=== PATIENT | female | born 1970 | race African-American/Black ===

== ENCOUNTER 2017-04-09 13:06 | Emergency (ER) | payer MEDICAID ==
[~2017-04-09] VITALS: Ht 172.7 cm; Wt 93.0 kg
[~2017-04-09 13:06] MED LIST: LIS10T PO
[2017-04-09 13:43] LABS: Basophils # (auto) 0 uL; Basophils % (auto) 0.2 % (0.0-2.0); CONDITION Y; DEFINITIVE SEE PRINTOUT; Eosinophils # (auto) 0.2 uL; Hematocrit 43.2 % (36.0-46.0); Hemoglobin 14.2 g/dL (12.2-16.2); Lymphocytes # (auto) 1.6 uL; Lymphocytes % (auto) 20.2 % (10.0-50.0); Mean Corpuscular Hemoglobin 26.6 pg (28.0-32.0); Mean Corpuscular Hgb Conc. 32.8 g/dL (32.0-36.0); Mean Platelet Volume 9.2 fL (7.4-10.4); Monocytes # (auto) 0.4 uL; Monocytes % (auto) 4.9 % (0.0-12.0); Neutrophils # (auto) 5.7 uL; Neutrophils % (auto) 72.7 % (37.0-80.0); Platelet Count (auto) 275 10^3/uL (140-450); Red Cell Distribution Width 16.8 % (11.6-16.0); White Blood Cell 7.8 10^3/uL (4.4-10.8)
[2017-04-09 14:09] LABS: Albumin 3.5 g/dL (3.4-5.0); Alkaline Phosphatase 56 U/L (45-117); Anion Gap 8 (5-15); Aspartate Aminotransferase 13 U/L (15-37); BUN/Creatinine Ratio 13.1; Bilirubin, Total 0.2 mg/dL (0.2-1.0); Blood Urea Nitrogen 11 mg/dL (7-18); Calcium 8.9 mg/dL (8.5-10.1); Carbon Dioxide 24 mmol/L (21-32); Chloride 106 mmol/L (98-107); GFR African American 93 mL/min; GFR Non-African American 77 mL/min; Glucose 91 mg/dL (74-106); Potassium 3.9 mmol/L (3.5-5.1); Sodium 138 mmol/L (136-145); Total Protein 7.8 g/dL (6.4-8.2)
[2017-04-09] MEDS ORDERED: cloNIDine HCL 0.1 MG TAB PO ONE ×2 (16:30→17:00)
[2017-04-09] MEDS ORDERED: LORazepam 0.5 MG TAB PO ONE (16:30)
[2017-04-09 17:51] VITALS: BP 148/101
== END 2017-04-09 18:04 | disposition home or self-care (01) ==
LOC: ER 13:07
DX: I10 Essential (primary) hypertension (principal); F41.9 Anxiety disorder, unspecified; Z98.51 Tubal ligation status; Z91.041 Radiographic dye allergy status; F17.210 Nicotine dependence, cigarettes, uncomplicated
CPT/HCPCS: 36415; 80053; 83735; 84484; 85025; 93005

== ENCOUNTER 2017-06-26 14:33 | Emergency (ER) | payer SELFPAY ==
[~2017-06-26] VITALS: Ht 172.7 cm; Wt 91.6 kg
[2017-06-26] MEDS ORDERED: cloNIDine HCL 0.1 MG TAB PO ONE ×2 (14:45→18:30)
[2017-06-26 15:47] LABS: Basophils # (auto) 0 uL; Basophils % (auto) 0.6 % (0.0-2.0); Eosinophils # (auto) 0.1 uL; Eosinophils % (auto) 2.4 % (0.0-7.0); Hematocrit 37.6 % (36.0-46.0); Hemoglobin 12.4 g/dL (12.2-16.2); Lymphocytes # (auto) 1.9 uL; Mean Corpuscular Hemoglobin 27.2 pg (28.0-32.0); Mean Corpuscular Volume 82.3 fL (80.0-100.0); Mean Platelet Volume 8.7 fL (7.4-10.4); Monocytes # (auto) 0.6 uL; Monocytes % (auto) 11.2 % (0.0-12.0); Neutrophils # (auto) 2.9 uL; Neutrophils % (auto) 51.8 % (37.0-80.0); Nucleated Red Blood Cells % 0.3 %; Platelet Count (auto) 205 10^3/uL (140-450); Red Cell Distribution Width 15.9 % (11.6-16.0); White Blood Cell 5.6 10^3/uL (4.4-10.8)
[2017-06-26 16:07] LABS: Albumin 3.3 g/dL (3.4-5.0); Alkaline Phosphatase 54 U/L (45-117); Anion Gap 6 (5-15); Aspartate Aminotransferase 11 U/L (15-37); BUN/Creatinine Ratio 13.5; Bilirubin, Total 0.2 mg/dL (0.2-1.0); Blood Urea Nitrogen 10 mg/dL (7-18); Calcium 8.4 mg/dL (8.5-10.1); Carbon Dioxide 27 mmol/L (21-32); Chloride 104 mmol/L (98-107); GFR African American 108 mL/min; GFR Non-African American 89 mL/min; Glucose 91 mg/dL (74-106); Magnesium 2.5 mg/dL (1.6-2.6); Potassium 4.1 mmol/L (3.5-5.1); Sodium 137 mmol/L (136-145); Total Protein 7.4 g/dL (6.4-8.2)
[2017-06-26 18:20] VITALS: BP 153/121
[2017-06-26] MEDS ORDERED: LISINOPRIL 20 MG TAB PO ONE (18:50)
== END 2017-06-26 19:34 | disposition home or self-care (01) ==
LOC: ER 14:33
DX: I10 Essential (primary) hypertension (principal); F17.210 Nicotine dependence, cigarettes, uncomplicated; R11.2 Nausea with vomiting, unspecified; R42 Dizziness and giddiness; Z98.51 Tubal ligation status; Z91.041 Radiographic dye allergy status
CPT/HCPCS: 36415; 70450; 71020; 80053; 83735; 84484; 84702; 85025; 93005

== ENCOUNTER 2017-12-02 04:45 | Emergency (ER) | payer MEDICAID ==
[~2017-12-02] VITALS: Ht 170.2 cm; Wt 90.7 kg
[2017-12-02] MEDS ORDERED: cloNIDine HCL 0.1 MG TAB ONE ×2 (05:27→08:11)
[2017-12-02] MEDS ORDERED: NIFEdipine 10 MG CAP PO ONE (05:30)
[2017-12-02] MEDS ORDERED: cloNIDine HCL 0.1 MG TAB PO ONE ×2 (05:30→08:15)
[2017-12-02] MEDS ORDERED: ACETAMINOPHEN/CODEINE#3 (300/30mg) TAB PO ONE (06:15)
[2017-12-02 08:18] VITALS: BP 174/114
== END 2017-12-02 08:20 | disposition home or self-care (01) ==
LOC: ER 04:45
DX: S62.633A Displaced fracture of distal phalanx of left middle finger, initial encounter for closed fracture (principal); I10 Essential (primary) hypertension; F17.210 Nicotine dependence, cigarettes, uncomplicated; Z79.899 Other long term (current) drug therapy; Z91.041 Radiographic dye allergy status; X58.XXXA Exposure to other specified factors, initial encounter; Y93.89 Activity, other specified; Y99.8 Other external cause status; Y92.89 Other specified places as the place of occurrence of the external cause
CPT/HCPCS: 29130; 73140

== ENCOUNTER 2018-06-02 15:03 | Emergency (ER) | payer MEDICAID ==
[~2018-06-02] VITALS: Ht 172.7 cm; Wt 90.7 kg
[2018-06-02 15:12] VITALS: BP 142/85
== END 2018-06-02 15:22 | disposition left against medical advice (07) ==
LOC: ER 15:03
DX: R42 Dizziness and giddiness (principal); Z53.21 Procedure and treatment not carried out due to patient leaving prior to being seen by health care provider
CPT/HCPCS: 93005

== ENCOUNTER 2018-08-15 09:24 | Emergency (ER) | payer MEDICAID ==
[~2018-08-15] VITALS: Ht 172.7 cm; Wt 90.3 kg
[2018-08-15 09:58] VITALS: BP 149/100
[2018-08-15 10:10] LABS: Basophils # (auto) 0 uL; Basophils % (auto) 0.6 % (0.0-2.0); Eosinophils # (auto) 0.1 uL; Eosinophils % (auto) 2.2 % (0.0-7.0); Hematocrit 41.2 % (36.0-46.0); Hemoglobin 13.6 g/dL (12.2-16.2); Lymphocytes # (auto) 1.4 uL; Mean Corpuscular Hemoglobin 27.4 pg (28.0-32.0); Mean Corpuscular Hgb Conc. 32.9 g/dL (32.0-36.0); Mean Corpuscular Volume 83.2 fL (80.0-100.0); Monocytes # (auto) 0.3 uL; Monocytes % (auto) 6.6 % (0.0-12.0); Neutrophils # (auto) 2.8 uL; Neutrophils % (auto) 60.6 % (37.0-80.0); Platelet Count (auto) 210 10^3/uL (140-450); Red Blood Cells 4.95 10^6/uL (4.0-5.20); Red Cell Distribution Width 14.9 % (11.8-14.3); White Blood Cell 4.6 10^3/uL (4.4-10.8)
[2018-08-15 10:26] LABS: Albumin 3.8 g/dL (3.4-5.0); Amylase 54 U/L (25-115); Anion Gap 7 (5-15); Aspartate Aminotransferase 20 U/L (15-37); BUN/Creatinine Ratio 9.5; Blood Urea Nitrogen 7 mg/dL (7-18); Calcium 9.1 mg/dL (8.5-10.1); Carbon Dioxide 26 mmol/L (21-32); Chloride 106 mmol/L (98-107); GFR African American 107 mL/min; GFR Non-African American 89 mL/min; Glucose 100 mg/dL (74-106); Lipase 124 U/L (73-393); Potassium 3.3 mmol/L (3.5-5.1); Sodium 139 mmol/L (136-145)
[2018-08-15 10:31] LABS: Alanine Aminotransferase 22 U/L (13-56); Alkaline Phosphatase 59 U/L (45-117); Bilirubin, Total 0.3 mg/dL (0.2-1.0); Total Protein 8.2 g/dL (6.4-8.2)
[2018-08-15] MEDS ORDERED: POTASSIUM EFFERVESENT TAB 25 MEQ PO ONE (10:45)
[2018-08-15 11:05] LABS: Urine Bacteria NONE SEEN /hpf (None Seen); Urine Blood Negative /uL (Negative); Urine Mucus FEW (None Seen); Urine WBC 1 /hpf (0 - 5)
== END 2018-08-15 12:08 | disposition home or self-care (01) ==
LOC: ER 09:24
DX: K29.70 Gastritis, unspecified, without bleeding (principal); E87.6 Hypokalemia; F17.210 Nicotine dependence, cigarettes, uncomplicated; I10 Essential (primary) hypertension; Z98.51 Tubal ligation status
CPT/HCPCS: 36415; 74176; 80053; 81001; 82150; 83690; 84484; 85025; 93005

== ENCOUNTER 2018-10-17 09:02 | Emergency (ER) | payer MEDICAID ==
[~2018-10-17] VITALS: Ht 172.7 cm; Wt 88.0 kg
[2018-10-17 09:22] VITALS: BP 147/91
[2018-10-17] MEDS ORDERED: KETOROLAC TROMETH 60MG/2ML VIAL IM ONE (10:00)
== END 2018-10-17 10:22 | disposition home or self-care (01) ==
LOC: ER 09:02
DX: M23.92 Unspecified internal derangement of left knee (principal); I10 Essential (primary) hypertension; F17.210 Nicotine dependence, cigarettes, uncomplicated; Z79.899 Other long term (current) drug therapy; Z98.51 Tubal ligation status
CPT/HCPCS: 73562; 96372; 99283; J1885

== ENCOUNTER 2019-04-25 11:27 | Inpatient (IN) | payer MEDICAID ==
[~2019-04-25] VITALS: Ht 171.4 cm; Wt 84.3 kg
[2019-04-25 12:26] LABS: Basophils # (auto) 0 uL; Basophils % (auto) 0.5 % (0.0-2.0); Eosinophils # (auto) 0.2 uL; Hematocrit 39.1 % (36.0-46.0); Hemoglobin 12.9 g/dL (12.2-16.2); Lymphocytes % (auto) 34.9 % (10.0-50.0); Mean Corpuscular Hemoglobin 27.3 pg (28.0-32.0); Mean Corpuscular Hgb Conc. 33.1 g/dL (32.0-36.0); Mean Corpuscular Volume 82.5 fL (80.0-100.0); Monocytes # (auto) 0.5 uL; Monocytes % (auto) 8.4 % (0.0-12.0); Neutrophils % (auto) 53.2 % (37.0-80.0); Platelet Count (auto) 175 10^3/uL (140-450); Red Blood Cells 4.73 10^6/uL (4.0-5.20); Red Cell Distribution Width 15.4 % (11.8-14.3); White Blood Cell 5.6 10^3/uL (4.4-10.8)
[2019-04-25 12:28] LABS: Urine Bacteria FEW /hpf (None Seen); Urine Blood Negative /uL (Negative); Urine Specific Gravity 1.005 (1.001-1.035); Urine WBC 2 /hpf (0 - 5)
[2019-04-25 12:45] LABS: Albumin 3.5 g/dL (3.4-5.0); Anion Gap 6 (5-15); BUN/Creatinine Ratio 15.1; Blood Urea Nitrogen 11 mg/dL (7-18); Calcium 8.5 mg/dL (8.5-10.1); Carbon Dioxide 28 mmol/L (21-32); Chloride 106 mmol/L (98-107); GFR African American 109 mL/min; GFR Non-African American 90 mL/min; Glucose 89 mg/dL (74-106); Magnesium 2.2 mg/dL (1.6-2.6); Potassium 3.6 mmol/L (3.5-5.1); Sodium 140 mmol/L (136-145)
[2019-04-25 12:50] LABS: Alanine Aminotransferase 18 U/L (13-56); Alkaline Phosphatase 69 U/L (45-117); Aspartate Aminotransferase 14 U/L (15-37); Bilirubin, Total 0.2 mg/dL (0.2-1.0); Total Protein 7.4 g/dL (6.4-8.2)
[2019-04-25 12:51] LABS: INR 1.04 (0.9-1.15); Partial Thromboplastin Time 23.6 sec (23.64-32.05)
[2019-04-25] MEDS ORDERED: HYDROcodone-ACET 5/325MG TAB PO PRN (14:00)
[2019-04-25] MEDS ORDERED: ASPirin 81 mg TAB PO ONE (14:00)
[2019-04-25] MEDS ORDERED: LABETALOL HCL 5 MG/ML ML 20ML VIAL IV PRN (14:00)
[2019-04-25] MEDS ORDERED: MORPHINE SULF INJ 2 MG/ML SYRINGE 1ML IV PRN ×2 (14:00)
[2019-04-25] MEDS ORDERED: NITROGLYCERIN 0.4 MG SL TAB SL PRN (14:00)
[2019-04-25] MEDS ORDERED: ONDANSETRON HCL 4 MG/2 ML VIAL IV PRN (14:00)
[2019-04-25] MEDS ORDERED: POTASSIUM EFFERVESENT TAB 25 MEQ PO ONE (14:45)
--- NOTE | 2019-04-25 15:10 | NUR ---
Telemetry admit from ER WILFREDOSAI admitted to Telemetry unit after SBAR received. Patient oriented to Negrita Alonzo RN primary RN, unit, room, bed, and unit policies regarding patient care and visiting hours. Patient now on continuous telemetry monitoring, tele box # [id number] and telemetry reading on arrival to unit is SR. Patient encouraged to call if they need something. All questions and concerns addressed, patient verbalized understanding.
[2019-04-25 15:49] VITALS: BP 155/106
[2019-04-25] MEDS ORDERED: AMLO5TAB13 PO (17:13)
[2019-04-25] MEDS ORDERED: CARV3.1240 PO (17:13)
[2019-04-25 17:14] VITALS: BP 147/100
[2019-04-25] MEDS ORDERED: cloNIDine HCL 0.1 MG TAB PO ONE (17:15)
[2019-04-25] MEDS ORDERED: cloNIDine HCL 0.1 MG TAB PO PRN (17:15)
--- NOTE | 2019-04-25 17:15 | NUR ---
TELEPHONE ORDERS Page sent to Richard YOU r/t patient's blood pressure readings. T/O read back and noted.
--- NOTE | 2019-04-25 17:28 | NUR ---
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
[2019-04-25 18:52] VITALS: BP 120/72
--- NOTE | 2019-04-25 19:45 | NUR ---
Opening Shift Note: A&Ox4, resting in bed. Room air, pain level 0/10, and ambulates independently without assistive devices. Bed locked in lowest position, side rails up x2, and call light within reach. IV 20 g in left AC IID inserted on 04/25/19. Skin intact. POC discussed and questions answered. Will continue to round prn.
[2019-04-25 22:00] VITALS: BP 107/71
[2019-04-25] MEDS: CARVEDILOL 3.125 MG TAB PO SCH (22:00)
--- NOTE | 2019-04-25 22:00 | NUR ---
Held 2200 coreg related to decreased HR of 59. Current BP stable at 105/71.
[2019-04-25 23:42] VITALS: BP 128/88
[2019-04-26 05:02] VITALS: BP 116/82
--- NOTE | 2019-04-26 07:35 | NUR ---
OPENING NOTE Assumed care of patient from NOC RNAnahy. Patient awake and alert with no S/S of distress/SOB or pain. Instructed on POC and to call for assist PRN, verbalized understanding. Bed in lowest, locked position with side rails up x2 and call light within reach. Will continue to monitor for changes Q1hr and PRN.
[2019-04-26 09:27] VITALS: BP 129/87
[2019-04-26] MEDS: CARVEDILOL 3.125 MG TAB PO SCH ×2 (10:00→22:00)
[2019-04-26] MEDS: LISINOPRIL 10 MG TAB PO SCH (10:01)
[2019-04-26] MEDS: ASPirin 81 mg TAB PO SCH (10:02)
[2019-04-26] MEDS: FAMOTIDINE 20 MG TAB PO SCH (10:02)
--- NOTE | 2019-04-26 11:01 | NUR ---
BRADYCARDIA Received call from [facility] stating patient's HR is 45. Patient was asleep upon entering room, woke patient up and informed her of low HR and asked if she felt ok. Patient states she does feel "alittle off but thought I was just tired". Elevated feet, current HR 59, will continue to monitor.
[2019-04-26 13:00] VITALS: BP 114/65
[2019-04-26 17:00] VITALS: BP 144/96
--- NOTE | 2019-04-26 19:25 | NUR ---
CLOSING NOTE Endorsed care of patient to NOC Anahy SEE.
[2019-04-26] MEDS: ACETAMINOPHEN 500 MG TAB PO PRN ×2 (20:00→22:05)
[2019-04-26 22:00] VITALS: BP 115/74
--- NOTE | 2019-04-26 22:00 | NUR ---
Held 2200 carvedilol related to decreased HR of 57.
[2019-04-27 05:25] VITALS: BP 121/75
[2019-04-27 05:25] LABS: Basophils # (auto) 0 uL; Basophils % (auto) 0.3 % (0.0-2.0); Eosinophils # (auto) 0.1 uL; Eosinophils % (auto) 2.2 % (0.0-7.0); Hematocrit 40.4 % (36.0-46.0); Hemoglobin 13.2 g/dL (12.2-16.2); Lymphocytes # (auto) 2.1 uL; Lymphocytes % (auto) 40.9 % (10.0-50.0); Mean Corpuscular Hemoglobin 27.1 pg (28.0-32.0); Mean Corpuscular Hgb Conc. 32.7 g/dL (32.0-36.0); Mean Corpuscular Volume 82.9 fL (80.0-100.0); Monocytes # (auto) 0.3 uL; Monocytes % (auto) 6.1 % (0.0-12.0); Neutrophils # (auto) 2.6 uL; Neutrophils % (auto) 50.5 % (37.0-80.0); Nucleated Red Blood Cells % 0.1 %; Platelet Count (auto) 161 10^3/uL (140-450); Red Blood Cells 4.87 10^6/uL (4.0-5.20); Red Cell Distribution Width 15.6 % (11.8-14.3); White Blood Cell 5.2 10^3/uL (4.4-10.8)
[2019-04-27 05:34] LABS: Alanine Aminotransferase 16 U/L (13-56); Albumin 3.2 g/dL (3.4-5.0); Anion Gap 7 (5-15); BUN/Creatinine Ratio 9.7; Blood Urea Nitrogen 7 mg/dL (7-18); Calcium 8.6 mg/dL (8.5-10.1); Carbon Dioxide 29 mmol/L (21-32); Chloride 109 mmol/L (98-107); GFR African American 110 mL/min; GFR Non-African American 91 mL/min; Glucose 92 mg/dL (74-106); Sodium 145 mmol/L (136-145)
[2019-04-27 05:37] LABS: Alkaline Phosphatase 61 U/L (45-117); Aspartate Aminotransferase 11 U/L (15-37); Bilirubin, Total 0.2 mg/dL (0.2-1.0); Total Protein 6.9 g/dL (6.4-8.2)
[2019-04-27 08:45] VITALS: BP 110/64
[2019-04-27] MEDS: CARVEDILOL 3.125 MG TAB PO SCH (10:00)
[2019-04-27] MEDS: ASPirin 81 mg TAB PO SCH (10:03)
[2019-04-27] MEDS: FAMOTIDINE 20 MG TAB PO SCH (10:04)
[2019-04-27] MEDS: LISINOPRIL 10 MG TAB PO SCH (10:04)
--- NOTE | 2019-04-27 10:10 | NUR ---
MED HELD Held 1000 Coreg secondary to decreased heart rate, 53.
[2019-04-27 13:00] VITALS: BP 129/75
--- NOTE | 2019-04-27 15:30 | NUR ---
DISCHARGE Discharge instructions given as ordered. Encouraged to follow up with PMD as instructed. All questions and concerns addressed. Patient verbalized understanding. Medication reconciliation form completed and copy given to patient. IV removed with catheter intact and pressure dressing applied. Telemetry unit returned to [facility]. Patient ambulated to vehicle with all personal belongings, accompanied by family member. No distress noted at time of departure.
== END 2019-04-27 15:30 | disposition home or self-care (01) | DRG 201 ==
LOC: ER 11:27 → TELE 11:28 → TELE-WESTW 15:20
PROVIDERS: ADMIT Nurse Practitioner Acute Care; ATTEND Nurse Practitioner Acute Care
DX: I48.0 Paroxysmal atrial fibrillation (principal); E44.1 Mild protein-calorie malnutrition; I16.0 Hypertensive urgency; I10 Essential (primary) hypertension; M10.9 Gout, unspecified; Z68.28 Body mass index [BMI] 28.0-28.9, adult; F17.210 Nicotine dependence, cigarettes, uncomplicated; F41.9 Anxiety disorder, unspecified; Z80.3 Family history of malignant neoplasm of breast
CPT/HCPCS: 36415; 70450; 71045; 80053; 81001; 83735; 83880; 84443; 84484; 85025; 85610; 85730; 86141; 93005; 93306; 94761; G0378

== ENCOUNTER 2019-08-31 11:08 | Emergency (ER) | payer MEDICAID ==
[~2019-08-31] VITALS: Ht 172.7 cm; Wt 84.4 kg
[~2019-08-31 11:08] MED LIST changes: +AMLO5TAB15 PO; +CARV3.1240 PO
[2019-08-31 11:40] LABS: Basophils # (auto) 0.1 uL; Eosinophils # (auto) 0.1 uL; Eosinophils % (auto) 1.9 % (0.0-7.0); Hematocrit 40.6 % (36.0-46.0); Hemoglobin 13.5 g/dL (12.2-16.2); Lymphocytes # (auto) 1.6 uL; Lymphocytes % (auto) 23.9 % (10.0-50.0); Mean Corpuscular Hemoglobin 28.6 pg (28.0-32.0); Mean Corpuscular Hgb Conc. 33.2 g/dL (32.0-36.0); Monocytes # (auto) 0.5 uL; Monocytes % (auto) 7.3 % (0.0-12.0); Neutrophils # (auto) 4.4 uL; Neutrophils % (auto) 65.9 % (37.0-80.0); Nucleated Red Blood Cells % 0.1 %; Platelet Count (auto) 219 10^3/uL (140-450); Red Blood Cells 4.71 10^6/uL (4.0-5.20); Red Cell Distribution Width 14.4 % (11.8-14.3); White Blood Cell 6.6 10^3/uL (4.4-10.8)
[2019-08-31 11:45] LABS: Urine Bacteria FEW /hpf (None Seen); Urine Blood Negative /uL (Negative); Urine Hyaline Cast FEW /lpf (0 - 2); Urine Mucus FEW (None Seen); Urine Specific Gravity 1.018 (1.001-1.035); Urine WBC 1 /hpf (0 - 5)
[2019-08-31 11:58] LABS: Alanine Aminotransferase 19 U/L (13-56); Albumin 3.4 g/dL (3.4-5.0); Anion Gap 4 (5-15); Aspartate Aminotransferase 13 U/L (15-37); BUN/Creatinine Ratio 11.4; Blood Urea Nitrogen 9 mg/dL (7-18); Calcium 8.6 mg/dL (8.5-10.1); Carbon Dioxide 29 mmol/L (21-32); Chloride 108 mmol/L (98-107); GFR African American 99 mL/min; GFR Non-African American 82 mL/min; Glucose 85 mg/dL (74-106); Potassium 3.5 mmol/L (3.5-5.1)
[2019-08-31] MEDS ORDERED: cloNIDine HCL 0.1 MG TAB PO ONE (12:00)
[2019-08-31 12:02] LABS: Alkaline Phosphatase 66 U/L (45-117); Bilirubin, Total 0.1 mg/dL (0.2-1.0); Total Protein 7.6 g/dL (6.4-8.2)
[2019-08-31 12:55] LABS: Sodium 141 mmol/L (136-145)
[2019-08-31 13:47] VITALS: BP 124/89
== END 2019-08-31 14:02 | disposition home or self-care (01) ==
LOC: ER 11:08
DX: I16.0 Hypertensive urgency (principal); F17.210 Nicotine dependence, cigarettes, uncomplicated; Z91.013 Allergy to seafood; Z88.8 Allergy status to other drugs, medicaments and biological substances; Z91.018 Allergy to other foods; Z79.899 Other long term (current) drug therapy
CPT/HCPCS: 36415; 71046; 80053; 81001; 84484; 85025; 93005

== ENCOUNTER 2019-09-07 12:49 | Emergency (ER) | payer MEDICAID ==
[~2019-09-07] VITALS: Ht 165.1 cm; Wt 85.7 kg
[2019-09-07] MEDS ORDERED: cloNIDine HCL 0.1 MG TAB PO ONE (15:30)
[2019-09-07] MEDS ORDERED: ACETAMINOPHEN 325 MG TAB PO ONE (15:30)
[2019-09-07 15:57] LABS: Basophils # (auto) 0 uL; Basophils % (auto) 0.6 % (0.0-2.0); Eosinophils # (auto) 0.1 uL; Eosinophils % (auto) 1.6 % (0.0-7.0); Hematocrit 38.5 % (36.0-46.0); Hemoglobin 12.8 g/dL (12.2-16.2); Lymphocytes # (auto) 1.9 uL; Lymphocytes % (auto) 32.1 % (10.0-50.0); Mean Corpuscular Hemoglobin 28.6 pg (28.0-32.0); Mean Corpuscular Hgb Conc. 33.2 g/dL (32.0-36.0); Mean Corpuscular Volume 86.1 fL (80.0-100.0); Monocytes # (auto) 0.5 uL; Monocytes % (auto) 8.1 % (0.0-12.0); Neutrophils # (auto) 3.5 uL; Neutrophils % (auto) 57.6 % (37.0-80.0); Nucleated Red Blood Cells % 0.1 %; Platelet Count (auto) 196 10^3/uL (140-450); Red Blood Cells 4.47 10^6/uL (4.0-5.20); Red Cell Distribution Width 14.2 % (11.8-14.3)
[2019-09-07 16:10] LABS: Albumin 3.6 g/dL (3.4-5.0); Anion Gap 6 (5-15); Blood Urea Nitrogen 9 mg/dL (7-18); Calcium 8.6 mg/dL (8.5-10.1); Carbon Dioxide 27 mmol/L (21-32); Chloride 109 mmol/L (98-107); Glucose 83 mg/dL (74-106); Magnesium 2.4 mg/dL (1.6-2.6); Potassium 3.5 mmol/L (3.5-5.1); Sodium 142 mmol/L (136-145)
[2019-09-07 16:11] LABS: INR 1.11 (0.9-1.15); Partial Thromboplastin Time 25.1 sec (23.64-32.05)
[2019-09-07 16:16] LABS: Alanine Aminotransferase 14 U/L (13-56); Alkaline Phosphatase 59 U/L (45-117); Aspartate Aminotransferase 11 U/L (15-37); BUN/Creatinine Ratio 14.1; Bilirubin, Total 0.2 mg/dL (0.2-1.0); GFR African American 126 mL/min; GFR Non-African American 104 mL/min; Total Protein 7.5 g/dL (6.4-8.2)
[2019-09-07] MEDS ORDERED: KETOROLAC TROMETH 30 MG/ML 1ML VIAL IV ONE (17:15)
[2019-09-07] MEDS ORDERED: ASPirin 81 mg TAB PO ONE (17:15)
[2019-09-07] MEDS ORDERED: KETOROLAC TROMETH 60MG/2ML VIAL IM ONE (17:30)
[2019-09-07 20:05] VITALS: BP 147/96
== END 2019-09-07 20:20 | disposition home or self-care (01) ==
LOC: ER 12:49
DX: R51 Headache (principal); R07.89 Other chest pain; I10 Essential (primary) hypertension; F17.210 Nicotine dependence, cigarettes, uncomplicated; Z91.018 Allergy to other foods; Z91.013 Allergy to seafood; Z88.8 Allergy status to other drugs, medicaments and biological substances; Z79.899 Other long term (current) drug therapy
CPT/HCPCS: 36415; 70450; 71045; 80053; 83735; 84484; 85025; 85379; 85610; 85730; 93005; 96372; 99284; J1885

== ENCOUNTER 2020-04-14 15:03 | Emergency (ER) | payer MEDICAID ==
[~2020-04-14] VITALS: Ht 172.7 cm; Wt 83.9 kg
[2020-04-14] MEDS ORDERED: cloNIDine HCL 0.1 MG TAB PO ONE (15:30)
[2020-04-14 16:05] LABS: Basophils # (auto) 0.1 10 ^3/uL (0-0.2); Basophils % (auto) 1.8 % (0.0-2.0); Eosinophils # (auto) 0.1 10 ^3/uL (0-0.8); Eosinophils % (auto) 1.2 % (0.0-7.0); Hematocrit 41.9 % (36.0-46.0); Hemoglobin 13.8 g/dL (12.2-16.2); Lymphocytes # (auto) 1.8 10 ^3/uL (0.4-5.4); Lymphocytes % (auto) 29.6 % (10.0-50.0); Mean Corpuscular Hemoglobin 28.7 pg (28.0-32.0); Mean Corpuscular Volume 86.8 fL (80.0-100.0); Monocytes # (auto) 0.4 10 ^3/uL (0-1.3); Monocytes % (auto) 6.6 % (0.0-12.0); Neutrophils # (auto) 3.6 10 ^3/uL (1.6-8.6); Neutrophils % (auto) 60.8 % (37.0-80.0); Nucleated Red Blood Cells % 0.1 %; Platelet Count (auto) 208 10^3/uL (140-450); Red Blood Cells 4.83 10^6/uL (4.0-5.20); Red Cell Distribution Width 13.4 % (11.8-14.3)
[2020-04-14 16:24] LABS: Albumin 3.7 g/dL (3.4-5.0); Anion Gap 3 (5-15); Blood Urea Nitrogen 8 mg/dL (7-18); Calcium 9.2 mg/dL (8.5-10.1); Carbon Dioxide 29 mmol/L (21-32); Chloride 108 mmol/L (98-107); Glucose 85 mg/dL (74-106); Potassium 3.4 mmol/L (3.5-5.1); Sodium 140 mmol/L (136-145)
[2020-04-14 16:29] LABS: Alanine Aminotransferase 18 U/L (13-56); Alkaline Phosphatase 59 U/L (45-117); Aspartate Aminotransferase 11 U/L (15-37); Bilirubin, Total 0.3 mg/dL (0.2-1.0); GFR African American 108 mL/min; GFR Non-African American 89 mL/min; Total Protein 7.5 g/dL (6.4-8.2)
[2020-04-14] MEDS ORDERED: HYDROcodone-ACET 5/325MG TAB PO ONE (17:15)
[2020-04-14] MEDS ORDERED: POTASSIUM CHL 20 Meq TABLET PO ONE (17:15)
[2020-04-14 17:20] LABS: Urine Bacteria FEW /hpf (None Seen); Urine Blood Negative /uL (Negative); Urine Specific Gravity 1.005 (1.001-1.035); Urine WBC 5 /hpf (0 - 5)
[2020-04-14 17:37] VITALS: BP 129/87
[2020-04-14 17:55] LABS: Alcohol, Urine < 3.0 mg/dL (0-10); Amphetamine Screen, Urine NEGATIVE (NEGATIVE); Barbiturate Scree,Urine NEGATIVE (NEGATIVE); Benzodiazephine Screen, Urine NEGATIVE (NEGATIVE); Cannabinoid Screen, Urine NEGATIVE (NEGATIVE); Cocaine Screen, Urine NEGATIVE (NEGATIVE); Opiate Scree,Urine NEGATIVE (NEGATIVE); Phencyclidine Screen, Urine NEGATIVE (NEGATIVE)
== END 2020-04-14 18:15 | disposition home or self-care (01) ==
LOC: ER 15:03
DX: I10 Essential (primary) hypertension (principal); R51 Headache; E87.6 Hypokalemia; Z71.6 Tobacco abuse counseling; Z91.018 Allergy to other foods; Z91.013 Allergy to seafood; Z88.8 Allergy status to other drugs, medicaments and biological substances
CPT/HCPCS: 36415; 70450; 71046; 80053; 80307; 81001; 83880; 84443; 84484; 85025; 93005

== ENCOUNTER 2020-04-22 14:39 | Emergency (ER) | payer MEDICAID ==
[~2020-04-22] VITALS: Ht 172.7 cm; Wt 84.8 kg
[2020-04-22 15:49] VITALS: BP 146/101
[2020-04-22] MEDS ORDERED: KETOROLAC TROMETH 60MG/2ML VIAL IM ONE (16:00)
== END 2020-04-22 16:35 | disposition home or self-care (01) ==
LOC: ER 14:39
DX: G44.209 Tension-type headache, unspecified, not intractable (principal); I10 Essential (primary) hypertension; F17.210 Nicotine dependence, cigarettes, uncomplicated
CPT/HCPCS: 96372; 99283; J1885

== ENCOUNTER 2025-01-08 17:46 | Inpatient (IN) | payer MEDICAID ==
[~2025-01-08] VITALS: Ht 172.7 cm; Wt 102.3 kg
[~2025-01-08 17:46] MED LIST changes: +AMLO1TAB22 PO; -AMLO5TAB15 PO
--- NOTE | 2025-01-08 18:06 | ED.PDOC ---
HPI Comments 55y F who presents to the ED for chief complaint of chest pain. Pt had the following ED course: - pt has been having chest pain for the past 2 days - pt states chest pain is L sided, constant, non-radiating, with noted exacerbating or relieving factors - pt denies any associated symptoms including diaphoresis, palpitations, shortness of breath, or any associated symptoms - pt has noted elevated blood pressure in the ED, despite taking her medications - pt denies any other symptoms at this time. past medical history: HTN past surgical history: medications: denies allergies: iodine, shellfish, avocado social history: endorses tobacco use, endorses Etoh use, denies drug use HPI: Poor Historian. REVIEW OF SYSTEMS: CONSTITUTIONAL: Denies acute: fever, diaphoresis, chills, generalized weakness. HEAD: Denies acute: headache, photophobia Eyes: Denies acute: Double vision, vision loss, eye pain, eye discharge. EARS: Denies acute: tinnitus, hearing loss, ear discharge, ear pain, THROAT: Denies acute: sore throat, swelling, difficulty swallowing , pain with swallowing, change in voice. NECK: Denies acute: neck pain, neck swelling, stiff neck. HEART: Denies acute : palpitations, LUNGS: Denies acute: SOB, wheezing, cough, hemoptysis ABDOMEN: Denies acute: abdominal pain, Nausea, Vomiting, diarrhea, melena , hematemesis, hematochezia SKIN: Denies acute: rash, redness, lesions, itchiness. EXTREMITIES: Denies acute: calf pain, numbness, tingling, weakness, denies pain in extremity. Denies acute: Low back pain. Neuro: Denies acute: focal neurological deficit, motor or sensory focal neurological deficit, tremors, seizure like activity, confusion, dizziness, change in mental status, loss of bowel or bladder function, cauda equina like symptoms. : Denies acute: dysuria, hematuria, flank pain, increase in urinary frequency. PSYCH: Denies acute: hallucination, suicidal ideation, homicidal ideation. FEMALE: Denies acute: abnormal vaginal bleeding, foul odor, unusual discharge. PHYSICAL EXAM: General: no acute distress, awake and alert. Head: normocephalic, atraumatic. Neck: supple, trachea is midline, no swelling. Throat: Normal phonation. Eyes:, no erythema, no purulent discharge, no proptosis, no icterus. Heart: regular rate, regular rhythm, no significant murmur appreciated. Lungs: no apparent respiratory distress, Able to speak in full sentences. No wheezing, no rhonchi, no crackles. No stridors Clear to auscultation bilaterally. Abdomen: non tender to palpation, non distended, soft, no guarding, no rebound, + bowel sounds. Neuro: Awake, Alert, oriented to name, self, situation, follows commands GCS=15. Speech is normal. Skin: no petechia, no purpura, no cyanosis, non-pale, not jaundice. Lower extremities: --no - Pitting edema no deformity, no focal swelling, no calf TTP. Makes eye contact. moves all four extremities. Face: no apparent facial droop. Ambulating in the ED independently. ED COURSE: Time Seen by MD: 18:03 Primary Care Provider: ANA Reviewed Notes: Nurses Notes, Medications, Allergies Allergies: Coded Allergies: Avocado (Verified Allergy, Unknown, 04/14/20) Iodine (Verified Allergy, Unknown, 04/14/20) Shellfish Allergy (Verified Allergy, Unknown, 04/14/20) Home Meds Reported Medications Carvedilol (Carvedilol) 3.125 Mg Tab, 3.125 MG PO BID for 30 Days, MG 04/25/19 Amlodipine Besylate (Amlodipine Besylate) 5 Mg Tab, 5 MG PO DAILY for 30 Days, MG 04/25/19 Lisinopril (ZESTRIL TABLET) 10 Mg Tb, 40 MG PO HS 10/05/15 Information Source: Patient Mode of Arrival: Ambulatory Brought in by: self Past Medical History PAST MEDICAL HISTORY: HTN 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 Was a procedure done?: No CP Differential Dx Differential Diagnosis: N/A Differential Diagnosis: Other (Ddx include but not limitied to gastritis, musculoskeletal pain, radiculopathy, atypical chest pain, dissection, aneurysm, ACS, unstable angina, hiatal hernia, GERD, anxiety, costochondritis, PE, pneumothroax, neoplasm, cardiac ischemia, drug abuse, anemia.) X-Ray, Labs, Meds, VS Vital Signs Date Time Temp Pulse Resp B/P (MAP) Pulse Ox O2 Delivery O2 Flow Rate FiO2 01/08/25 20:49 71 01/08/25 20:20 98.2 71 16 161/101 (121) 96 98.2 01/08/25 20:15 Room Air* 0 21 01/08/25 19:54 123/88 01/08/25 18:54 138/92 01/08/25 18:48 72 01/08/25 18:41 80 01/08/25 18:41 98.8 80 16 138/92 (107) 96 98.8 01/08/25 17:56 82 01/08/25 17:46 98.0 91 18 161/100 (120) 97 98.0 Lab Test 01/08/25 19:03 01/08/25 18:00 Range/Units Troponin I High Sensitivity 4 4 </=34 ng/L White Blood Count 9.1 4.4-10.8 10^3/uL Red Blood Count 4.65 4.0-5.20 10^6/uL Hemoglobin 12.6 12.2-16.2 g/dL Hematocrit 38.0 36.0-46.0 % Mean Corpuscular Volume 81.8 80.0-100.0 fL Mean Corpuscular Hemoglobin 27.2 L 28.0-32.0 pg Mean Corpuscular Hemoglobin Concent 33.2 32.0-36.0 g/dL Red Cell Distribution Width 15.9 H 11.8-14.3 % Platelet Count 241 140-450 10^3/uL Mean Platelet Volume 8.6 6.9-10.8 fL Neutrophils (%) (Auto) 67.0 37.0-80.0 % Lymphocytes (%) (Auto) 23.6 10.0-50.0 % Monocytes (%) (Auto) 7.4 0.0-12.0 % Eosinophils (%) (Auto) 1.3 0.0-7.0 % Basophils (%) (Auto) 0.7 0.0-2.0 % Neutrophils # (Auto) 6.1 1.6-8.6 10 ^3/uL Lymphocytes # (Auto) 2.1 0.4-5.4 10 ^3/uL Monocytes # (Auto) 0.7 0-1.3 10 ^3/uL Eosinophils # (Auto) 0.1 0-0.8 10 ^3/uL Basophils # (Auto) 0.1 0-0.2 10 ^3/uL Nucleated Red Blood Cells 0.1 % Sodium Level 144 136-145 mmol/L Potassium Level 3.7 3.5-5.1 mmol/L Chloride Level 110 H 98-107 mmol/L Carbon Dioxide Level 26 20-31 mmol/L Anion Gap 8 5-15 Blood Urea Nitrogen 7 L 9-23 mg/dL Creatinine 0.71 0.550-1.02 mg/dL Glomerular Filtration Rate Calc 100 >90 mL/min BUN/Creatinine Ratio 9.9 L 10.0-20.0 Serum Glucose 114 H 74-106 mg/dL Calcium Level 9.7 8.7-10.4 mg/dL Total Bilirubin 0.2 0.2-1.0 mg/dL Aspartate Amino Transferase (AST) 19 13-40 U/L Alanine Aminotransferase (ALT) 23 7-40 U/L Alkaline Phosphatase 70 46-116 U/L B-Type Natriuretic Peptide 39.53 0-100 pg/mL Total Protein 6.7 5.7-8.2 g/dL Albumin 4.4 3.2-4.8 g/dL Current Medications Medications (Trade) Dose Ordered Sig/Brenden Route Start Time Stop Time Status Last Admin Aspirin (Ecotrin Enteric Coated Tablet) 325 mg ONCE ONCE PO 01/08/25 18:00 01/08/25 18:01 DC 01/08/25 18:53 Nitroglycerin (Ntrostat Sublingual) 0.4 mg ONCE ONCE SL 01/08/25 18:00 01/08/25 18:01 DC 01/08/25 18:[address] [address] Ph: [phone] DIAGNOSTIC IMAGING Diagnostic Imaging Report : [id number] Signed PATIENT: SAI VILLALOBOS CACCT: [id number] UNIT: [id number] : 1970 LOC: ER ROOM / BED: / AGE / SEX: 55 / F ADM STATUS: REG ER SERVICE 1754 ORDERING PHYSICIAN: EDGARDO HANDY DO PROCEDURE(s): CXRP - CHEST PORTABLE REASON: cp ORDER NUMBER(s): [id number], ACCESSION NUMBER(s): [id number] INDICATION: cp TECHNIQUE: Frontal view of the chest. COMPARISON: None FINDINGS: . The heart and mediastinal contours are grossly unremarkable. There is no evidence of pleural disease. The lungs are clear. The bony structures of the chest are intact without fracture. IMPRESSION: 1. No evidence of acute disease. ATED BY: JULIETA GALLEGOS MD DICTATED DATE/TIME: 01/08/251904 SIGNED BY: JULIETA GALLEGOS MD SIGNED DATE/TIME: 01/08/251904 CC: Time of 1ST Reevaluation: 22:56 Reevaluation 1ST: Improved Patient Education/Counseling: Diagnosis, Treatment Family Education/Counseling: No Family Present Comments Patient presented with the above HPI.--chest pain----workup was initiated. patient was found with the above mentioned diagnosis. the following medications were ordered: please refer to order lists of meds and tests obtained by myself Dr. Handy. Patient ED course and VS have been stabilized. Patient has been reassessed in the ED and remained in a stable condition. Pertinent incidental findings were discussed with the patient and/or family. Patient/family voices understanding and is agreeable with plan. Patient has been observed in the ED adequate length of time to insure improvement/stability. Escalation of care considered: Consideration of escalation to observation or admission Patient was ADMITTED to the medicine team for further evaluation and treatment of their presentation. All the reports of any imaging studies that were ordered by myself were reviewed by myself. Departure 1 Departure Time of Disposition: 18:31 Impression: Primary Impression: Chest pain Qualified Codes: R07.9 - Chest pain, unspecified Disposition: ADMITTED INPATIENT Admit to: [facility] Condition: Guarded Discharged With: Self Critical Care Note Critical Care Time?: No Heart Score Heart Score: Heart Score Response (Comments) Value History Moderate Suspicious 1 EKG Normal 0 Age 45-64 1 Risk Factors >3 or Hx ASHD 2 Troponin Normal limit 0 Total 4 I personally scribed for EDGARDO HANDY DO ([facility]) on 01/08/25 at 18:06. Electronically submitted by Emily Parks ([facility] I personally scribed for EDGARDO HANDY DO ([facility]) on 01/08/25 at 19:58. Electronically submitted by Emily Parks ([facility] EDGARDO HANDY DO Jan 08, 2025 18:06
[2025-01-08 18:29] LABS: Basophils # (auto) 0.1 10 ^3/uL (0-0.2); Basophils % (auto) 0.7 % (0.0-2.0); Eosinophils # (auto) 0.1 10 ^3/uL (0-0.8); Eosinophils % (auto) 1.3 % (0.0-7.0); Hemoglobin 12.6 g/dL (12.2-16.2); Lymphocytes # (auto) 2.1 10 ^3/uL (0.4-5.4); Lymphocytes % (auto) 23.6 % (10.0-50.0); Mean Corpuscular Hemoglobin 27.2 pg (28.0-32.0); Mean Corpuscular Hgb Conc. 33.2 g/dL (32.0-36.0); Mean Corpuscular Volume 81.8 fL (80.0-100.0); Monocytes # (auto) 0.7 10 ^3/uL (0-1.3); Monocytes % (auto) 7.4 % (0.0-12.0); Neutrophils # (auto) 6.1 10 ^3/uL (1.6-8.6); Nucleated Red Blood Cells % 0.1 %; Platelet Count (auto) 241 10^3/uL (140-450); Red Blood Cells 4.65 10^6/uL (4.0-5.20); Red Cell Distribution Width 15.9 % (11.8-14.3); White Blood Cell 9.1 10^3/uL (4.4-10.8)
[2025-01-08 18:47] LABS: Alanine Aminotransferase 23 U/L (7-40); Albumin 4.4 g/dL (3.2-4.8); Alkaline Phosphatase 70 U/L (46-116); Anion Gap 8 (5-15); Aspartate Aminotransferase 19 U/L (13-40); BUN/Creatinine Ratio 9.9 (10.0-20.0); Calcium 9.7 mg/dL (8.7-10.4); Carbon Dioxide 26 mmol/L (20-31); Potassium 3.7 mmol/L (3.5-5.1); Sodium 144 mmol/L (136-145); Total Protein 6.7 g/dL (5.7-8.2)
[2025-01-08] MEDS: ASPirin-EC 325mg tab PO ONE (18:53)
[2025-01-08] MEDS: NITROGLYCERIN 0.4 MG SL TAB SL ONE (18:54)
--- NOTE | 2025-01-08 19:07 | DVH ---
INDICATION: cp TECHNIQUE: Frontal view of the chest. COMPARISON: None FINDINGS: . The heart and mediastinal contours are grossly unremarkable. There is no evidence of pleural disea se. The lungs are clear. The bony structures of the chest are intact without fracture. IMPRESSION: 1. No evidence of acute disease.
[2025-01-08 19:23] LABS: Bilirubin, Total 0.2 mg/dL (0.2-1.0); Blood Urea Nitrogen 7 mg/dL (9-23); Chloride 110 mmol/L (98-107); Glucose 114 mg/dL (74-106)
[2025-01-08 20:00] VITALS: PULSE 68
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
[2025-01-08] MEDS ORDERED: MORPHINE SULFATE INJ 2 MG/ml SYRG IV PRN (23:30)
[2025-01-08 23:40] LABS: Triglycerides 249 mg/dL (< 150)
[2025-01-08 23:41] LABS: LDL Cholesterol 69 mg/dL (< 100)
[2025-01-08 23:42] LABS: Cholesterol 171 mg/dL (< 200)
[2025-01-08 23:46] LABS: HDL Cholesterol 71 mg/dL (40-59)
[2025-01-08] MEDS: ACETAMINOPHEN 325 MG TAB PO PRN (23:53)
[2025-01-09] VITALS (10 sets, daily range): BP systolic 117–195; BP diastolic 75–90; PULSE 62–108; RESP 18–20; TEMP 97.5–98.6; O2SAT 95–98
[2025-01-09] MEDS: PANTOPRAZOLE 40 MG/10 ML VIAL INJ IV ONE (01:12)
[2025-01-09] MEDS: NICOTINE 14 MG/24HR TOPICAL PATCH TD ONE (01:12)
[2025-01-09] MEDS: traMADol HCL 50 MG TAB PO ONE (01:12)
[2025-01-09 01:16] LABS: COVID19 ANTIGEN SOFIA FIA NEGATIVE (NEGATIVE); Rapid Influenza A Negative (Negative); Rapid Influenza B Negative (Negative)
[2025-01-09 06:26] LABS: Basophils # (auto) 0 10 ^3/uL (0-0.2); Eosinophils # (auto) 0.1 10 ^3/uL (0-0.8); Monocytes # (auto) 0.5 10 ^3/uL (0-1.3)
[2025-01-09 06:30] LABS: Basophils % (auto) 0.6 % (0.0-2.0); Eosinophils % (auto) 1.7 % (0.0-7.0); Hematocrit 36.6 % (36.0-46.0); Lymphocytes # (auto) 2.7 10 ^3/uL (0.4-5.4); Lymphocytes % (auto) 38.7 % (10.0-50.0); Mean Corpuscular Hemoglobin 26.8 pg (28.0-32.0); Mean Corpuscular Hgb Conc. 32.8 g/dL (32.0-36.0); Mean Corpuscular Volume 81.7 fL (80.0-100.0); Monocytes % (auto) 6.6 % (0.0-12.0); Neutrophils # (auto) 3.6 10 ^3/uL (1.6-8.6); Neutrophils % (auto) 52.4 % (37.0-80.0); Platelet Count (auto) 214 10^3/uL (140-450); Red Blood Cells 4.48 10^6/uL (4.0-5.20); Red Cell Distribution Width 15.8 % (11.8-14.3); White Blood Cell 6.9 10^3/uL (4.4-10.8)
[2025-01-09 06:38] LABS: Anion Gap 9 (5-15); Carbon Dioxide 26 mmol/L (20-31); Sodium 144 mmol/L (136-145)
[2025-01-09 06:39] LABS: Calcium 9.1 mg/dL (8.7-10.4)
[2025-01-09 06:44] LABS: BUN/Creatinine Ratio 11.4 (10.0-20.0); Chloride 109 mmol/L (98-107); Potassium 3.4 mmol/L (3.5-5.1)
[2025-01-09 06:45] LABS: CRP High Sensitivity 0.71 mg/dL (<1.0); Magnesium 1.9 mg/dL (1.6-2.6)
[2025-01-09 06:46] LABS: Phosphorus 3.8 mg/dL (2.4-5.1)
[2025-01-09 06:47] LABS: Blood Urea Nitrogen 8 mg/dL (9-23); Glucose 133 mg/dL (74-106)
--- NOTE | 2025-01-09 07:10 | ECG ---
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
--- NOTE | 2025-01-09 07:10 | ECG ---
[facility] Test Date: 2025-01-08 Test Time: 20:49:04 Pat Name: SAI VILLALOBOS [facility] Pcmh Specialist: YULISSA : 1970 Requested By: EDGARDO HANDY Order Number: [id number] Reading MD: George Monet Measurements Intervals [place] Rate: 71 P: 12 OK: 142 QRS: 26 QRSD: 86 T: 4 QT: 382 QTc: 416 Interpretive Statements Sinus rhythm Electronically Signed On 01-09-2025 11:57:16 PDT by George Monet Please click the below link to view image of tracing.
[2025-01-09 08:20] LABS: Erythrocyte Sedimentation Rate 14 mm/hr (0-20)
--- NOTE | 2025-01-09 10:18 | DVHPNRES ---
Progress Note Date Seen: Jan 09, 2025 Resident Creating Document: NICKY LEE RESIDENT Medical Necessity Reason Pt with a Central, PICC or Fol: No Subjective Review of Systems This is a 55-year-old female with a past medical history of hypertension and carpal tunnel presented to the ED today with a chief complaint of chest pain. Per the patient,4 days ago, she started pains and achiness on her right lower jaw. Two days later, she started having left sided chest pain that felt more like an ache than pain with associated mild diaphoresis. It is constant," just sitting there" the patient said with no radiation, exacerbation or relieving factors. She denied denied palpitations, shortness of breath, or any associated symptoms. Given the persistency and the nature of the of the pain, patient came to the ED to be evaluated. In the ED, patient received nitroglycerin and Aspirin but said it did not make any difference. Pain is still present although mild. Troponin were negative and 12 lead EKG showed T-wave inversion in lead III otherwise unremarkable. Patient was seen and examined on the bedside. she is alert oriented x3. Mentioned feeling better and some chest discomfort. No other active complaint. Constitutional: No: Fever, Chills, Sweats, Weakness, Malaise, Other Eyes: No: Pain, Vision change, Conjunctivae inflammation, Eyelid inflammation, Other, Redness ENT: No: Ear pain, Ear discharge, Nose pain, Nose discharge, Nose congestion, Mouth pain, Mouth swelling, Throat pain, Throat swelling, Other Respiratory: Shortness of breath, improving No: Cough, Dry,Wheezing, Hemoptysis, Pleuritic Pain, Sputum, Wheezing, Other Cardiovascular: No: Chest Pain, Palpitations, Orthopnea, Paroxysmal Noc. Dyspnea, Edema, Lt Headedness, Other Gastrointestinal: No: Nausea, Vomiting, Abdominal Pain, Diarrhea, Constipation, Melena, Hematochezia, Other Musculoskeletal: No: other, neck pain, shoulder pain, arm pain, back pain, hand pain, leg pain, foot pain Neurological:; No: Weakness, Numbness, Incoordination, Change in speech, Confusion, Seizures Objective vital signs Vital Sign Date Time Temp Pulse Resp B/P (MAP) Pulse Ox O2 Delivery O2 Flow Rate FiO2 01/09/25 06:00 98.4 88 18 122/77 (92) 95 98.4 01/09/25 02:36 Room Air* 0 21 Total Intake and Output 01/08/25 01/08/25 01/09/25 15:00 23:00 07:00 Intake Total 0 ml Balance 0 ml medications Current Medications Medications Dose Ordered Sig/Brenden Route Start Time Stop Time Status Last Admin Dose Admin Acetaminophen 650 mg Q6HP PRN PO 01/08/25 23:30 01/08/25 23:53 650 MG Enoxaparin Sodium 40 mg DAILY SC 01/09/25 10:00 Pantoprazole Sodium 40 mg DAILY PO 01/10/25 10:00 Morphine Sulfate 1 mg Q4HP PRN IV 01/09/25 02:00 Examination Physical examination: General Appearance: Alert, Oriented X3, Cooperative, No acute distress HEENT: Atraumatic, PERRLA, EOMI, Mucous membrane moist/pink Respiratory: Clear to auscultation, Normal air movement Cardiovascular: Regular rate, Normal S1, Normal S2, No murmurs, no chest wall tenderness Abdominal: Normal bowel sounds, Soft, No tenderness, No hepatospenomegaly, No masses Extremities: No clubbing, No cyanosis, No edema, Normal pulses, No tenderness/swelling Skin: No rashes, No breakdown, No significant lesion Neuro: Normal gait, Normal speech, Strength at 5/5 X4 ext, Normal tone, Sensation intact, Cranial nerves 3-12 NL, Reflexes 2+ Psych/Mental Status: Mental status NL, Mood NL laboratory and microbiology Laboratory Tests 01/09/25 05:50 Test 01/09/25 05:50 Range/Units Serum Glucose 133 H 74-106 mg/dL Labs and/or images reviewed: Labs reviewed by me, Image(s) reviewed by me Problem List/Assessment/Plan Problem List/Assessment/Plan Assessment and plan: # Acute chest pain rule out ACS # Hypertensive urgency # hypertensive heart disease with possible chronic diastolic heart failure - EKG revealed sinus rhythm and T-wave inversion noted on lead III . - Troponin negative - CxR showed no evidence of acute disease - Pending echo - Continue for amlodipine 5 mg p.o. daily and carvedilol 3.175 mg b.i.d. - IV hydralazine 10 mg q.6 p.r.n. # prophylaxis - Pepcid 20 mg p.o. daily # DVT prophylaxis - Lovenox 40 mg sc daily Goal of care discussed with the patient for more than 15 minutes full code Plan discussed with Dr. Gage Plan discussed with: Patient, Other NICKY LEE RESIDENT Jan 09, 2025 10:18
[2025-01-09] MEDS: POTASSIUM CHL 20 Meq TABLET PO ONE (10:32)
[2025-01-09] MEDS: ENOXAPARIN SOD 40 MG/0.4 ML SYRINGE SC SCH (10:32)
[2025-01-09] MEDS ORDERED: hydrALAZINE HCL 20 MG/ML VL IV PRN ×2 (10:45→12:15)
[2025-01-09] MEDS: MORPHINE SULFATE INJ 2 MG/ml SYRG IV PRN (20:06)
[2025-01-09] MEDS: CARVEDILOL 3.125 MG TAB PO SCH (21:42)
[2025-01-10 01:00] VITALS: BP 126/78; PULSE 71; RESP 18; TEMP 98.2; O2SAT 97
[2025-01-10 05:00] VITALS: BP 122/76; PULSE 67; RESP 18; TEMP 98.4; O2SAT 99
[2025-01-10 07:30] LABS: Basophils # (auto) 0 10 ^3/uL (0-0.2); Basophils % (auto) 0.2 % (0.0-2.0); Eosinophils # (auto) 0.1 10 ^3/uL (0-0.8); Eosinophils % (auto) 1.6 % (0.0-7.0); Hematocrit 35.6 % (36.0-46.0); Lymphocytes # (auto) 1.8 10 ^3/uL (0.4-5.4); Lymphocytes % (auto) 25.8 % (10.0-50.0); Mean Corpuscular Hemoglobin 27.4 pg (28.0-32.0); Mean Corpuscular Hgb Conc. 33.8 g/dL (32.0-36.0); Mean Corpuscular Volume 81.2 fL (80.0-100.0); Monocytes # (auto) 0.5 10 ^3/uL (0-1.3); Monocytes % (auto) 7.1 % (0.0-12.0); Neutrophils # (auto) 4.6 10 ^3/uL (1.6-8.6); Neutrophils % (auto) 65.3 % (37.0-80.0); Platelet Count (auto) 210 10^3/uL (140-450); Red Blood Cells 4.38 10^6/uL (4.0-5.20); Red Cell Distribution Width 15.8 % (11.8-14.3); White Blood Cell 7.1 10^3/uL (4.4-10.8)
[2025-01-10 07:45] LABS: Anion Gap 8 (5-15); Carbon Dioxide 27 mmol/L (20-31); Chloride 107 mmol/L (98-107); Potassium 3.6 mmol/L (3.5-5.1); Sodium 142 mmol/L (136-145)
[2025-01-10 07:46] LABS: Calcium 9.2 mg/dL (8.7-10.4)
[2025-01-10 07:51] LABS: BUN/Creatinine Ratio 15.5 (10.0-20.0); Blood Urea Nitrogen 11 mg/dL (9-23); Glucose 102 mg/dL (74-106)
[2025-01-10 08:00] VITALS: PULSE 68
[2025-01-10 08:25] VITALS: BP 135/85; PULSE 69; RESP 17; TEMP 97.9; O2SAT 96
[2025-01-10] MEDS: PANTOPRAZOLE 40 MG TAB PO SCH (09:05)
[2025-01-10] MEDS: amLODIPine BESYLATE 5 MG TAB PO SCH (09:06)
[2025-01-10 12:35] VITALS: BP 148/74; PULSE 67; RESP 19; TEMP 98; O2SAT 97
[2025-01-10 16:40] VITALS: BP 124/79; PULSE 67; RESP 18; TEMP 98.2; O2SAT 98
[2025-01-10] MEDS ORDERED: CYCL-839 PO (19:03)
--- NOTE | 2025-01-10 19:11 | DVHDS2 ---
Discharge Summary Date of Admission Jan 08, 2025 at 23:18 Date of Discharge: Jan 10, 2025 Labs/Diagnostic Data: Laboratory Results Test 01/10/25 06:41 01/09/25 05:50 01/09/25 00:00 01/08/25 19:03 White Blood Count 7.1 10^3/uL (4.4-10.8) Red Blood Count 4.38 10^6/uL (4.0-5.20) Hemoglobin 12.0 g/dL (12.2-16.2) Hematocrit 35.6 % (36.0-46.0) Mean Corpuscular Volume 81.2 fL (80.0-100.0) Mean Corpuscular Hemoglobin 27.4 pg (28.0-32.0) Mean Corpuscular Hemoglobin Concent 33.8 g/dL (32.0-36.0) Red Cell Distribution Width 15.8 % (11.8-14.3) Platelet Count 210 10^3/uL (140-450) Mean Platelet Volume 8.1 fL (6.9-10.8) Neutrophils (%) (Auto) 65.3 % (37.0-80.0) Lymphocytes (%) (Auto) 25.8 % (10.0-50.0) Monocytes (%) (Auto) 7.1 % (0.0-12.0) Eosinophils (%) (Auto) 1.6 % (0.0-7.0) Basophils (%) (Auto) 0.2 % (0.0-2.0) Neutrophils # (Auto) 4.6 10 ^3/uL (1.6-8.6) Lymphocytes # (Auto) 1.8 10 ^3/uL (0.4-5.4) Monocytes # (Auto) 0.5 10 ^3/uL (0-1.3) Eosinophils # (Auto) 0.1 10 ^3/uL (0-0.8) Basophils # (Auto) 0 10 ^3/uL (0-0.2) Nucleated Red Blood Cells 0.0 % Sodium Level 142 mmol/L (136-145) Potassium Level 3.6 mmol/L (3.5-5.1) Chloride Level 107 mmol/L (98-107) Carbon Dioxide Level 27 mmol/L (20-31) Anion Gap 8 (5-15) Blood Urea Nitrogen 11 mg/dL (9-23) Creatinine 0.71 mg/dL (0.550-1.02) Glomerular Filtration Rate Calc 100 mL/min (>90) BUN/Creatinine Ratio 15.5 (10.0-20.0) Serum Glucose 102 mg/dL (74-106) Calcium Level 9.2 mg/dL (8.7-10.4) Erythrocyte Sedimentation Rate 14 mm/hr (0-20) Hemoglobin A1c 5.9 % A1C (<5.7) Phosphorus Level 3.8 mg/dL (2.4-5.1) Magnesium Level 1.9 mg/dL (1.6-2.6) C-Reactive Protein High Sensitivity 0.71 mg/dL (<1.0) Influenza Type A Antigen Negative (Negative) Influenza Type B Antigen Negative (Negative) SARS-CoV-2 Antigen (Rapid) Negative (NEGATIVE) Troponin I High Sensitivity 4 ng/L (</=34) Triglycerides Level 249 mg/dL (< 150) Cholesterol Level 171 mg/dL (< 200) LDL Cholesterol 69 mg/dL (< 100) HDL Cholesterol 71 mg/dL (40-59) Thyroid Stimulating Hormone (TSH) 0.73 uIU/mL (0.55-4.78) Test 01/08/25 18:00 Total Bilirubin 0.2 mg/dL (0.2-1.0) Aspartate Amino Transferase (AST) 19 U/L (13-40) Alanine Aminotransferase (ALT) 23 U/L (7-40) Alkaline Phosphatase 70 U/L (46-116) B-Type Natriuretic Peptide 39.53 pg/mL (0-100) Total Protein 6.7 g/dL (5.7-8.2) Albumin 4.4 g/dL (3.2-4.8) Other Laboratory Tests 01/10/25 06:41 Brief Hx & Hospital Course: HPI:55-year-old female with a past medical history of hypertension and carpal tunnel presented to the ED today with a chief complaint of chest pain. Per the patient,4 days ago, she started pains and achiness on her right lower jaw. Two days later, she started having left sided chest pain that felt more like an ache than pain with associated mild diaphoresis. It is constant," just sitting there" the patient said with no radiation, exacerbation or relieving factors. She denied denied palpitations, shortness of breath, or any associated symptoms. Given the persistency and the nature of the of the pain, patient came to the ED to be evaluated. In the ED, patient received nitroglycerin and Aspirin but said it did not make any difference. Pain is still present although mild. Troponin were negative and 12 lead EKG showed T-wave inversion in lead III otherwise unremarkable. Summary: Patient presented with chest pain associated with jaw pain. The pain was described as ache constant. Patient has risk factor of hypertension. EKG had no significant changes and troponins were negative. Patient was maintained on tele to follow up on chest pain. Patient was chest pain is relieving and telemetry is normal sinus rhythm. Echo was done and is pending read,, To be followed up by PCP. On 01/10 patient chest pain is improving, vital signs stable, tele unconcerning, patient is stable for discharge as per plan below Diagnosis: # Acute chest pain, Ruled out ACS, likely musculoskeletal and/or GERD related # Hypertensive urgency # hypertensive heart disease with possible chronic diastolic heart failure Discharge plan: -try nightly Flexeril 10 mg for next 5 nights, can not bear with [id number] ibuprofen 400 mg. If chest pain related to foods can try [id number] Nexium taken daily for 30 days -continue other home medications -follow up with PCP to review discharge. PCP to follow up with the echo results. Condition at Discharge: Fair Final Diagnosis/Problems List # Acute chest pain, Ruled out ACS, likely musculoskeletal and/or GERD related # Hypertensive urgency # hypertensive heart disease with possible chronic diastolic heart failure Discharge Disposition: Home Discharge Instruct/Medications Diet: Cardiac 2g Na,low cholest Activity: No Restrictions, As Tolerated Follow Up/Referral: PCP Medications: As below Discharge Statement: "Patient was advised to return to the ER or call 911 if any headaches, dizziness, shortness of breath, chest pain, abdominal pain, bleeding, fevers, or worsening of medical condition. Patient was counseled about treatment plan, medications, possible side effects, patientverbalized understanding. All questions were answered to the best of my ability. This discharge took greater then 30 minutes in planning, reviewing documentation, counseling the patient, and discussing with other team members." Date of Service: Jan 10, 2025 Billing Provider: MELVINA RUIZ MD Common Visit Codes: 15745-QTY/OBS DISCH DAY >30min MELVINA RUIZ MD Jan 10, 2025 19:11
--- NOTE | 2025-01-11 01:06 | DVHSR ---
APPROVED REPORT EXAM: Two-dimensional and M-mode echocardiogram with Doppler and color Doppler. Blood Pressure: 122/77 mmHg INDICATION Chest Pain RISK FACTORS Obesity: Height: 5'8, Weight: 225 DIMENSIONS LVDd4.5 (3.8-5.7cm)LA (2D)3.6 (1.9-4.0cm)Aortic Root3.2 (2.0-3.7cm) LVDs3.5 (2.5-4.0cm)LA (MM) (1.9-4.0cm)Aortic Cusp Exc1.6 (1.5-2.0cm) EF (%) 50.0 (55-70%)Rt. Atrium2.8 (1.9-4.0cm)Asc. Aorta3.0 cm IVSd0.9 (0.7-1.1cm)RV (D)3.5 (1.8-2.4cm) PWd0.8 (0.7-1.1cm) Mitral Valve MitralMitral Stenosis E wave0.97m/sMV Mean GR.mmHg A wave1.02m/sMV Peak GR.75mmHg E/A ratio1.02D MVAcm2 DECEL [id number] 1/2 [place] Aortic Valve Aortic ValveAortic Stenosis V10.97m/[place] Mean GR.5mmHg V21.40m/[place] Peak GR.8mmHg LVOT Diameter1.9 (1.8-2.4cm)Doppler AVA1.96cm2 Pulmonic Valve V20.83m/s Tricuspid Valve TR Velocity2.54m/s [id number] Conclusion MILD LVH AND MILD LV DIASTOLIC DYSFUNCTION LV EF IS 55% NORMAL VALVES NO EFFUSION NORMAL RV FUNCTION
--- NOTE | 2025-01-12 12:37 | ECG ---
[facility] Test Date: 2025-01-08 Test Time: 17:56:33 Pat Name: SAI VILLALOBOS Department: ER Room: 0289T Gender: F [employer]: LINDA : 1970 Requested By: EDGARDO HANDY Order Number: [id number] Reading MD: Measurements Intervals [place] Rate: 82 P: 45 DC: 131 QRS: 14 QRSD: 89 T: 18 QT: 360 QTc: 421 Interpretive Statements Sinus rhythm Probable left atrial enlargement Probable anteroseptal infarct, old Please click the below link to view image of tracing.
== END 2025-01-10 19:55 | disposition home or self-care (01) | DRG 243 ==
LOC: ER 17:46 → OVERFLOW 23:18 → TELE-WESTW 01-09 02:30
PROVIDERS: ADMIT Student in an Organized Health Care Education/Training Program; ATTEND Family Medicine
DX: K21.9 Gastro-esophageal reflux disease without esophagitis (principal); I11.0 Hypertensive heart disease with heart failure; I50.32 Chronic diastolic (congestive) heart failure; D50.9 Iron deficiency anemia, unspecified; F17.210 Nicotine dependence, cigarettes, uncomplicated; F41.9 Anxiety disorder, unspecified; E66.9 Obesity, unspecified; Z68.34 Body mass index [BMI] 34.0-34.9, adult; Z20.822 Contact with and (suspected) exposure to COVID-19; R61 Generalized hyperhidrosis; I16.0 Hypertensive urgency; Z91.013 Allergy to seafood; Z88.8 Allergy status to other drugs, medicaments and biological substances; Z91.018 Allergy to other foods; Z79.899 Other long term (current) drug therapy
CPT/HCPCS: 36415; 71045; 80048; 80053; 80061; 83036; 83735; 83880; 84100; 84443; 84484; 85025; 85652; 86141; 87426; 87804; 93005; 93306; G0378; J2470